=== PATIENT | female | born 1945 | race Caucasian/White ===

== ENCOUNTER → 2017-07-08 | Outpatient (CLI) | payer OTHER | LOC: BHLMT 09:30 | PROVIDERS: ATTEND Internal Medicine Cardiovascular Disease | DX: Z01.818 Encounter for other preprocedural examination (principal); I48.0 Paroxysmal atrial fibrillation; I10 Essential (primary) hypertension; E78.5 Hyperlipidemia, unspecified | CPT/HCPCS: 93005-PO ==

== ENCOUNTER → 2017-09-29 | Outpatient (CLI) | payer OTHER ==
[~2017-09-29] MED LIST: REGADENOSON 0.4 MG/5 ML SYR IVP ONE
--- NOTE | 2017-09-29 15:52 | CPR ---
[f rep st] NONINVASIVE CARDIAC PROCEDURE REPORT DATE OF PROCEDURE: 09/29/2017 PROCEDURE PERFORMED: Lexiscan nuclear stress test. INDICATION: The patient is a 72-year-old female with a history of atrial fibrillation. She wore an event monitor and was found to have a 10-beat run of nonsustained ventricular tachycardia. She has a history of hypertension, hyperlipidemia and a family history of coronary artery disease. Her father had an MN at age of 61. PROCEDURE IN DETAIL: Consent was obtained. The patient was placed on continuous telemetry. Her res ting EKG reveal normal sinus rhythm with a heart rate of 61, GA interval 184, QRS duration 88, and a QTc of 411. She has nonspecific inferior ST-T wave changes. The patient was infused with Lexiscan a nd complained of shortness of breath. She remained in normal sinus rhythm without any significant ST -T wave changes. Her blood pressure at rest was 130/70 and peaked at 158/78. Began to recover 4 min utes into recovery. PLAN: Await nuclear images. /[id number]/[id number]
== END ==
LOC: FIMAGING 12:44
PROVIDERS: ATTEND Nurse Practitioner Family
DX: I48.0 Paroxysmal atrial fibrillation (principal); I47.2 Ventricular tachycardia
CPT/HCPCS: 78452; 93017; A9500; J2785